=== PATIENT | female | born 1960 | race Caucasian/White ===

== ENCOUNTER 2017-08-31 10:24 | Observation (INO) | payer MEDICAID ==
[~2017-08-31 10:24] MED LIST: METR500T PO
[2017-08-31] MEDS ORDERED: LORazepam 1MG TABLET PO ONE (11:30)
[2017-08-31 11:42] LABS: ALBUMIN 3.7 g/dL (3.4-5.0); ANION GAP 7 mmol/L (5-15); CALCIUM 8.6 mg/dL (8.5-10.1); CHLORIDE 107 mmol/L (98-107); CREATININE 0.64 mg/dL (0.55-1.02); SALICYLATE LEVEL 2.7 mg/dL (2.8-20.0)
[2017-08-31 11:44] LABS: ACETAMINOPHEN < 2 mcg/mL (10-30)
[2017-08-31 11:59] LABS: BASOPHILS # (AUTO) 0.02 x10^3/uL (0-0.1); BASOPHILS % (AUTO) 0 % (0-1); EOSINOPHILS # (AUTO) 0.06 x10^3/uL (0-0.4); EOSINOPHILS % (AUTO) 1 % (1-7); LYMPHOCYTES # (AUTO) 1.49 x10^3/uL (1-3.4); LYMPHOCYTES % (AUTO) 17 % (22-44); MD NO; MEAN CORPUSCULAR HEMOGLOBIN 29.8 pg (27.0-34.8); MEAN CORPUSCULAR HGB CONC 33.4 g/dL (32.4-35.8); MEAN CORPUSCULAR VOLUME 89.3 fL (80-100); MEAN PLATELET VOLUME 6.5 fL (7.4-10.4); MONOCYTES % (AUTO) 7 % (2-9); NEUTROPHILS # (AUTO) 6.36 x10^3/uL (1.8-6.8); NEUTROPHILS % (AUTO) 75 % (42-75); PLATELET COUNT 432 x10^3/uL (130-400); RED BLOOD COUNT 4.45 x10^6/uL (3.82-5.3); RED CELL DISTRIBUTION WIDTH 13.7 % (9.6-15.2)
[2017-08-31 12:49] LABS: AMPHETAMINE SCREEN, URINE Negative (Negative); BARBITURATE SCREEN, URINE Negative (Negative); BENZODIAZEPINE SCREEN, URINE Negative (Negative); CANNABINOID SCREEN, URINE Negative (Negative); COCAINE SCREEN, URINE Negative (Negative); METHADONE SCREEN, URINE Negative (Negative); OPIATE SCREEN, URINE Negative (Negative)
[2017-08-31] MEDS ORDERED: ONDANSETRON ODT 4 MG PO PRN (14:30)
[2017-08-31] MEDS ORDERED: POLYETHYLENE GLYCOL 17 GM PACKET PO PRN (14:30)
[2017-08-31] MEDS ORDERED: NICOTINE 14MG/24 HR PATCH.TD24 TD SCH (14:30)
[2017-08-31 14:59] LABS: INTERNATIONAL NORMALIZED RATIO 0.97 (0.93-1.1); PROTHROMBIN TIME 10.1 Seconds (9.6-11.5)
[2017-08-31 15:22] LABS: FREE T4 (FREE THYROXINE) 0.94 ng/dL (0.76-1.46); THYROID STIMULATING HORMONE 1.04 mIU/L (0.358-3.740)
[2017-08-31 16:33] VITALS: BP 129/71
[2017-08-31 19:37] VITALS: BP 97/62
[2017-09-01 06:07] LABS: ALBUMIN 3.2 g/dL (3.4-5.0); ANION GAP 5 mmol/L (5-15); CALCIUM 8.4 mg/dL (8.5-10.1); CHLORIDE 110 mmol/L (98-107)
[2017-09-01 06:13] LABS: ALANINE AMINOTRANSFERASE 22 U/L (12-78); ALKALINE PHOSPHATASE 86 U/L (45-117); BILIRUBIN,TOTAL 0.5 mg/dL (0.2-1.0); CREATININE 0.57 mg/dL (0.55-1.02); TOTAL PROTEIN 6.7 g/dL (6.4-8.2)
[2017-09-01 06:28] LABS: BASOPHILS # (AUTO) 0.02 x10^3/uL (0-0.1); BASOPHILS % (AUTO) 0 % (0-1); EOSINOPHILS % (AUTO) 2 % (1-7); LYMPHOCYTES # (AUTO) 1.58 x10^3/uL (1-3.4); LYMPHOCYTES % (AUTO) 24 % (22-44); MD NO; MEAN CORPUSCULAR HEMOGLOBIN 29.8 pg (27.0-34.8); MEAN CORPUSCULAR HGB CONC 33.7 g/dL (32.4-35.8); MEAN CORPUSCULAR VOLUME 88.3 fL (80-100); MEAN PLATELET VOLUME 6.6 fL (7.4-10.4); MONOCYTES # (AUTO) 0.59 x10^3/uL (0.2-0.8); MONOCYTES % (AUTO) 9 % (2-9); NEUTROPHILS % (AUTO) 65 % (42-75); PLATELET COUNT 401 x10^3/uL (130-400); RED BLOOD COUNT 4.38 x10^6/uL (3.82-5.3); RED CELL DISTRIBUTION WIDTH 13.9 % (9.6-15.2)
[2017-09-01 07:15] VITALS: BP 120/77
[2017-09-01] MEDS ORDERED: SENNA/DOCUSATE TABLET PO SCH (09:00)
[2017-09-01] MEDS ORDERED: SENNA/DOCUSATE TABLET PO PRN (09:30)
[2017-09-01 15:23] LABS: MICROSCOPIC AUTO
[2017-09-01 15:24] LABS: CULTURE INDICATED? YES
[2017-09-01] MEDS ORDERED: IBUPROFEN 200 MG TABLET PO PRN (16:30)
[2017-09-01 19:43] VITALS: BP 127/73
[2017-09-01] MEDS ORDERED: DIPHENHYDRAMINE 50 MG CAPSULE PO PRN (21:00)
[2017-09-02 07:23] VITALS: BP 109/68
[2017-09-02] MEDS ORDERED: ZOLPIDEM 5MG TABLET PO PRN (10:30)
[2017-09-02] MEDS ORDERED: NICOTINE 14MG/24 HR PATCH.TD24 TD SCH (14:30)
== END 2017-09-02 12:34 ==
LOC: ED 11:52 → EDIP 13:16 → 2N 16:15
PROVIDERS: ADMIT Hospitalist; ATTEND Hospitalist
DX: R45.851 Suicidal ideations (principal); K21.9 Gastro-esophageal reflux disease without esophagitis; F32.9 Major depressive disorder, single episode, unspecified; E44.1 Mild protein-calorie malnutrition; F41.9 Anxiety disorder, unspecified; G47.00 Insomnia, unspecified; G89.29 Other chronic pain; F17.210 Nicotine dependence, cigarettes, uncomplicated; Z82.49 Family history of ischemic heart disease and other diseases of the circulatory system
CPT/HCPCS: 36415; 80048; 80053; 80307; 80329; 81001; 82040; 84439; 84443; 85025; 85610; 87086; 99285; G0378; G0480

== ENCOUNTER 2018-04-28 00:33 | Emergency (ER) | payer MEDICAID ==
[~2018-04-28] VITALS: Ht 165.1 cm; Wt 63.6 kg
[2018-04-28] MEDS ORDERED: METHOCARBAMOL 750 MG TABLET ONE (01:26)
[2018-04-28] MEDS ORDERED: IBUPROFEN 800 MG TABLET ONE (01:26)
[2018-04-28] MEDS ORDERED: METHOCARBAMOL 750 MG TABLET PO ONE (01:30)
[2018-04-28] MEDS ORDERED: IBUPROFEN 200 MG TABLET PO ONE (01:30)
[2018-04-28 02:44] VITALS: BP 129/62
== END 2018-04-28 02:46 | disposition home or self-care (01) ==
LOC: ED 00:59
DX: G89.11 Acute pain due to trauma (principal); M25.512 Pain in left shoulder; M19.90 Unspecified osteoarthritis, unspecified site; F17.200 Nicotine dependence, unspecified, uncomplicated; Y04.0XXA Assault by unarmed brawl or fight, initial encounter; Y93.89 Activity, other specified; Y92.481 Parking lot as the place of occurrence of the external cause; Y99.8 Other external cause status
CPT/HCPCS: 99284

== ENCOUNTER 2018-07-27 06:38 | Emergency (ER) | payer MEDICAID ==
[~2018-07-27] VITALS: Ht 165.1 cm; Wt 65.5 kg
[2018-07-27 06:41] VITALS: BP 97/60
== END 2018-07-27 08:33 ==
LOC: ED 07:24
DX: J00 Acute nasopharyngitis [common cold] (principal); F41.1 Generalized anxiety disorder
CPT/HCPCS: 71046; 87081; 87880; 99283; 99284

== ENCOUNTER 2020-01-13 19:56 | Emergency (ER) | payer MEDICAID ==
[~2020-01-13] VITALS: Ht 162.6 cm; Wt 66.6 kg
[2020-01-13 19:59] VITALS: BP 114/56
--- NOTE | 2020-01-13 21:32 | NUR ---
PT DECIDED THAT SHE WOULD FILE A POLICE REPORT HERSELF AT THE POLICE STATION [facility] [place].
== END 2020-01-13 21:34 | disposition home or self-care (01) ==
LOC: ED 20:26
DX: S05.12XA Contusion of eyeball and orbital tissues, left eye, initial encounter (principal); S09.90XA Unspecified injury of head, initial encounter; M54.2 Cervicalgia; R51 Headache; M19.90 Unspecified osteoarthritis, unspecified site; F17.210 Nicotine dependence, cigarettes, uncomplicated; Y04.8XXA Assault by other bodily force, initial encounter; Y93.89 Activity, other specified; Y92.009 Unspecified place in unspecified non-institutional (private) residence as the place of occurrence of the external cause; Y99.8 Other external cause status
CPT/HCPCS: 70450; 70486; 72125; 99285